=== PATIENT | male | born 1990 | race American Indian/Alaskan Native ===

== ENCOUNTER 2017-12-05 16:15 | Emergency (ER) | payer SELFPAY ==
--- NOTE | 2017-12-05 20:40 | Emergency Department Report ---
ED General Adult HPI - General Chief complaint: Dyspnea/Respdistress Stated complaint: BREATHING PROBLEM Time Seen by Provider: 12/05/17 20:35 Source: patient Mode of arrival: Ambulatory Limitations: No Limitations - History of Present Illness Initial comments: Patient is a 27-year-old malewith no past medical history who presents with slight shortness of breath. Patient states that symptoms occurred about 1 day ago he was walking and he felt some difficulty breathing. Patient states that now he has no shortness of breath. Patient denies having any chest pain or any cough. Patient states that he had "asthma problems when he was a child ". Patient denies having any fevers or chills or any trauma towards his chest. - Related Data Allergies Allergy/AdvReac Type Severity Reaction Status Date / Time No Known Allergies Allergy Unverified 12/05/17 16:41 ED Review of Systems ROS: Stated complaint: BREATHING PROBLEM Other details as noted in HPI Constitutional: denies: chills, fever Eyes: denies: eye pain, eye discharge, vision change ENT: denies: ear pain, throat pain Respiratory: denies: cough, shortness of breath, wheezing Cardiovascular: denies: chest pain, palpitations Endocrine: no symptoms reported Gastrointestinal: denies: abdominal pain, nausea, diarrhea Genitourinary: denies: urgency, dysuria Musculoskeletal: denies: back pain, joint swelling, arthralgia Skin: denies: rash, lesions Neurological: denies: headache, weakness, paresthesias Psychiatric: denies: anxiety, depression Hematological/Lymphatic: denies: easy bleeding, easy bruising ED Past Medical Hx - Past Medical History Hx Asthma: Yes (childhood) - Social History Smoking Status: Current Some Day Smoker Substance Use Type: None ED Physical Exam - General Limitations: No Limitations General appearance: alert, in no apparent distress - Head Head exam: Present: atraumatic, normocephalic - Eye Eye exam: Present: normal appearance - ENT ENT exam: Present: mucous membranes moist - Neck Neck exam: Present: normal inspection - Respiratory Respiratory exam: Present: normal lung sounds bilaterally. Absent: respiratory distress - Cardiovascular Cardiovascular Exam: Present: regular rate, normal rhythm. Absent: systolic murmur, diastolic murmur, rubs, gallop - GI/Abdominal GI/Abdominal exam: Present: soft, normal bowel sounds - Rectal Rectal exam: Present: deferred - Extremities Exam Extremities exam: Present: normal inspection - Back Exam Back exam: Present: normal inspection - Neurological Exam Neurological exam: Present: alert, oriented X3 - Psychiatric Psychiatric exam: Present: normal affect, normal mood - Skin Skin exam: Present: warm, dry, intact, normal color. Absent: rash ED Course Vital Signs 12/05/17 16:38 Temperature 99 F Pulse Rate 94 H Respiratory 16 Rate Blood Pressure 145/88 O2 Sat by Pulse 96 Oximetry ED Medical Decision Making - Radiology Data Radiology results: image reviewed Chest xray: [facility] - Medical Decision Making Cdx: Asthma ddx: PTX, PNA I will get chest xray and I will send patient home with f/u for primary care. Critical care attestation.: If time is entered above; I have spent that time in minutes in the direct care of this critically ill patient, excluding procedure time. ED Disposition Clinical Impression: SOB (shortness of breath) Disposition: DC-01 TO HOME OR SELFCARE Is pt being admited?: No Does the pt Need Aspirin: No Condition: Stable Instructions: Dyspnea (ED) Referrals: KAREN DENTON MD [Primary Care Provider] - 3-5 Days
--- NOTE | 2017-12-05 21:52 | XRay Report ---
FINAL REPORT PROCEDURE: XR CHEST ROUTINE 2V TECHNIQUE: PA and lateral chest radiographs were obtained. CPT 61089 HISTORY: Shortness of breath COMPARISON: No prior studies are available for comparison. FINDINGS: Heart: Normal. Mediastinum/Vessels: Normal. Lungs/Pleural space: No infiltrate, effusion, or pneumothorax. Bony thorax: No acute osseous abnormality. Other: IMPRESSION: No pulmonary infiltrates.
[2017-12-05 22:52] VITALS: BP 147/84
== END 2017-12-05 20:42 | disposition home or self-care (01) ==
LOC: ED 16:15
DX: R06.02 Shortness of breath (principal); J45.909 Unspecified asthma, uncomplicated; F17.200 Nicotine dependence, unspecified, uncomplicated
CPT/HCPCS: 71046; 99283

== ENCOUNTER 2017-12-25 01:42 | Emergency (ER) | payer SELFPAY ==
[2017-12-25 05:30] LABS: Bilirubin,Urine NEG (Negative); Blood,Urine NEG (Negative); Color,Urine Yellow (Yellow); Mucus,Urine FEW /HPF; Protein,Urine <15 mg/dL mg/dL (Negative); Urobilinogen,Urine < 2.0 mg/dL (<2.0)
--- NOTE | 2017-12-25 05:31 | Emergency Department Report ---
ED General Adult HPI - General Chief complaint: Urogenital-Male Stated complaint: RASH ON PENIS; PAINFUL URINATION Time Seen by Provider: 12/25/17 04:51 Source: patient Mode of arrival: Ambulatory Limitations: No Limitations - History of Present Illness Initial comments: This is a 27-year-old male who is previously known to this provider. He recently moved here from [place]. He has a history of HIV, reports undetectable viral load, does not know his CD4 count, and reports that he is on highly active anti-retroviral therapy. He presents to the ER with a complaint of rash which he describes as punctate and itchy, on his arm, leg, buttock, recently moved to a [facility]. Denies testicular pain, but also describes urinary discomfort. He specifically denies dysuria. He denies recent sexual contacts. No headache, neck pain, chest pain , abdominal pain, shortness of breath. -: Gradual Location: back, genitals, left, right, upper extremity, lower extremity Radiation: non-radiation Consistency: constant Improves with: none Worsens with: none Associated Symptoms: rash. denies: confusion, chest pain, cough, diaphoresis, fever/chills, headaches, loss of appetite, malaise, nausea/vomiting, shortness of breath, syncope, weakness - Related Data Previous Rx's Medication Instructions Recorded Last Taken Type Permethrin 5% [Acticin 5% CREAM] 1 applicatio TP ONCE #2 tube 12/25/17 Unknown Rx Allergies Allergy/AdvReac Type Severity Reaction Status Date / Time No Known Allergies Allergy Unverified 12/05/17 16:41 ED Review of Systems ROS: Stated complaint: RASH ON PENIS; PAINFUL URINATION Other details as noted in HPI Comment: All other systems reviewed and negative ED Past Medical Hx - Past Medical History Previous Medical History?: Yes Hx Asthma: Yes (childhood) Hx HIV: Yes - Surgical History Past Surgical History?: No Hx Appendectomy: Yes - Social History Smoking Status: Never Smoker Substance Use Type: None - Medications Home Medications: Home Medications Medication Instructions Recorded Confirmed Last Taken Type Permethrin 5% [Acticin 5% CREAM] 1 applicatio TP ONCE #2 tube 12/25/17 Unknown Rx ED Physical Exam - General Limitations: No Limitations General appearance: alert, in no apparent distress - Head Head exam: Present: atraumatic, normocephalic - Eye Eye exam: Present: normal appearance, EOMI. Absent: nystagmus - ENT ENT exam: Present: normal exam, normal orophraynx, mucous membranes moist, normal external ear exam - Neck Neck exam: Present: normal inspection - Respiratory Respiratory exam: Present: normal lung sounds bilaterally. Absent: respiratory distress - Cardiovascular Cardiovascular Exam: Present: regular rate, normal rhythm, normal heart sounds. Absent: bradycardia, tachycardia, irregular rhythm, systolic murmur, diastolic murmur, rubs, gallop - GI/Abdominal GI/Abdominal exam: Present: soft, normal bowel sounds. Absent: distended, tenderness, guarding, rebound, rigid - Rectal Rectal exam: Present: deferred - exam: Present: normal inspection. Absent: testicular tenderness External exam: Present: normal external exam, other (there is no testicular tenderness. There is normal testicular lie bilaterally. There is normal cremasteric reflex bilaterally.) - Extremities Exam Extremities exam: Present: normal inspection, full ROM, normal capillary refill , other (punctate individual bite like lesions noted on the upper extremities. They are not superinfected.). Absent: pedal edema, joint swelling, calf tenderness - Back Exam Back exam: Present: normal inspection, full ROM. Absent: paraspinal tenderness , vertebral tenderness - Neurological Exam Neurological exam: Present: alert, oriented X3, CN II-XII intact, normal gait, other (Extraocular movements intact. Tongue midline. No facial droop. Facial sensation intact to light touch in the V1, V2, V3 distribution bilaterally. 5 and 5 strength in 4 extremities.. Sensation is intact to light touch in 4 extremities.). Absent: motor sensory deficit - Psychiatric Psychiatric exam: Present: normal affect, normal mood - Skin Skin exam: Present: warm, other (no palm or sole rash). Absent: rash ED Course Vital Signs 12/25/17 02:13 Temperature 98.6 F Pulse Rate 106 H Respiratory 18 Rate Blood Pressure 139/71 O2 Sat by Pulse 98 Oximetry - Reevaluation(s) Reevaluation #1: 12/25/17 05:29 Differential diagnosis, including but not limited to: Urinary tract infection, insect bites Assessment and plan: 27-year-old male with 2 complaints. His rash appeared to be individual insect bites. They are not superinfected. These can be treated with permethrin. His genital exam is unremarkable, he does not have any rashes that appear to be consistent with syphilis at this time, urinalysis is pending, and he needs to follow-up with local outpatient infectious disease. Reevaluation #2: 12/25/17 05:33 Tachycardia resolves on my physical exam. Reevaluation #3: 12/25/17 05:44 Urinalysis was not consistent with urinary tract infection. Patient will be discharged. Critical care attestation.: If time is entered above; I have spent that time in minutes in the direct care of this critically ill patient, excluding procedure time. ED Disposition Clinical Impression: Rash Disposition: DC-01 TO HOME OR SELFCARE Is pt being admited?: No Does the pt Need Aspirin: No Condition: Stable Instructions: Insect Bite or Sting (ED) Additional Instructions: Used the permethrin cream as directed. Have your townhouse/place where he live evaluated by an entry level accounting clerk for possible insect/bedbugs. Wash all clothing and linens with hot water and soap. Purchase a mattress cover. Follow up with any of the listed infectious disease specialist within the next 4-6 weeks. Return to the ER right away with fevers, chills, lethargy, irritability, projectile vomiting, change in mental status, confusion, inability to tolerate liquid feedings. Cultures were sent today, results will be available in the next 3-5 days. Have a primary care doctor or infectious disease doctor contact the medical records department to obtain culture results. Prescriptions: Permethrin 5% [Acticin 5% CREAM] 1 applicatio TP ONCE #2 tube Referrals: PEDRO MON MD [Referring] - 3-5 Days MAYA STOCK MD [Staff Physician] - 3-5 Days LEIGH ANN HART MD [Staff Physician] - 3-5 Days
[2017-12-25 05:52] VITALS: BP 121/84
== END 2017-12-25 05:53 | disposition home or self-care (01) ==
LOC: ED 01:42
DX: R21 Rash and other nonspecific skin eruption (principal); J45.909 Unspecified asthma, uncomplicated; Z90.49 Acquired absence of other specified parts of digestive tract
CPT/HCPCS: 81001; 87086; 87591; 99282